=== PATIENT | female | born 1945 | race Caucasian/White ===

== ENCOUNTER 2018-10-07 15:14 | Emergency (ER) | payer OTHER | END 2018-10-07 22:16 | disposition home or self-care (01) | LOC: JER 15:14 ==

== ENCOUNTER 2019-03-13 13:03 | Inpatient (IN) | payer OTHER ==
[2019-03-13 15:34] LABS: BASO % 0.9 % (0-2.0); EOS % 1.2 % (0-4.5); HEMATOCRIT 33.4 % (32.4-45.2); HEMOGLOBIN 11.2 GM/dL (10.7-15.3); LYMPH % 30.1 % (8-40); MCH 32.1 pg (25.7-33.7); MCHC 33.6 g/dl (32.0-36.0); MEAN CELL VOLUME 95.3 fl (80-96); MEAN PLT VOLUME 8.9 fl (7.5-11.1); MONO % 3.2 % (3.8-10.2); NEUT % 64.6 % (42.8-82.8); PLATELET COUNT 345 K/MM3 (134-434); RDW 14.3 % (11.6-15.6); WHITE BLOOD COUNT 4.6 K/mm3 (4.0-10.0)
--- NOTE | 2019-03-13 15:58 | PDOC ---
History of Present Illness - General Chief Complaint: Seizure Stated Complaint: POSSIBLE STROKE Time Seen by Provider: 03/13/19 14:27 History Source: Patient Exam Limitations: No Limitations - History of Present Illness Initial Comments: 03/13/19 18:47 73 yo F with a hx of seizure (1x episode 7 years ago; no hx of epilepsy; no AEDs ), Parkinson's, and dementia presents to the emergency department s/p syncopal event that occurred at 12 pm. Per the daughter at bedside, the patient was at rest when her eyes rolled back and had "stiffness" in her extremities for 1-5 minutes. Denies head trauma. She was lying in her bed at the time of the episode. Afterwards, the patient's family states she is back to baseline which is alert and oriented x2 to person and place. The patient denies the following: pain, fever, chills, SOB, chest pain, nausea, vomiting, dysuria, hematuria, diarrhea, hematochezia, and leg pain/swelling. Allergies: NKDA Past History - Past Medical History Allergies/Adverse Reactions: Allergies Allergy/AdvReac Type Severity Reaction Status Date / Time No Known Allergies Allergy Verified 03/13/19 13:21 Home Medications: Ambulatory Orders NK [No Known Home Medication] 10/07/18 CVA: Yes (cva aphasia/generalized weakness 2014) COPD: No CHF: No HTN: Yes Seizures: Yes - Surgical History Abdominal Surgery: Yes () Appendectomy: No Cholecystectomy: No GI Surgery: No - Immunization History Immunization Up to Date: Yes - Psycho Social/Smoking Cessation Hx Smoking History: Never smoked Have you smoked in the past 12 months: No Information on smoking cessation initiated: No Hx Alcohol Use: No Drug/Substance Use Hx: No Review of Systems - Review of Systems Able to Perform ROS?: Yes Is the patient limited German proficient: No Constitutional: Yes: Weakness. No: Chills, Diaphoresis, Fever HEENTM: No: Eye Pain, Ear Pain, Nose Pain, Throat Pain, Mouth Pain Respiratory: No: Cough, Shortness of Breath, Hemoptysis Cardiac (ROS): Yes: Syncope. No: Chest Pain, Lightheadedness, Palpitations, Chest Tightness ABD/GI: No: Constipated, Diarrhea, Nausea, Vomiting : No: Burning, Dysuria, Incontinence Musculoskeletal: No: Back Pain, Joint Pain, Joint Stiffness Integumentary: No: Bruising, Erythema, Rash Neurological: No: Headache, Numbness Psychiatric: No: Change in Appetite Endocrine: No: Unexplained Weight Loss *Physical Exam - Vital Signs Last Vital Signs Temp Pulse Resp BP Pulse Ox 96.9 F L 74 16 136/63 100 03/13/19 13:06 03/13/19 13:06 03/13/19 13:06 03/13/19 13:06 03/13/19 13:06 - Physical Exam General Appearance: Yes: Appropriately Dressed, Cachetic. No: Apparent Distress , Intoxicated HEENT: positive: EOMI, GRAYSON, Normal Voice, Symmetrical, Pharynx Normal, Hearing Grossly Normal. negative: Pale Conjunctivae, Scleral Icterus (R), Scleral Icterus (L), Muffled/Hoarse voice, Pharyngeal Erythema, Tonsillar Exudate, Tonsillar Erythema, Nasal Congestion, Rhinorrhea, Sinus Tenderness, Excessive drooling Neck: positive: Trachea midline, Supple. negative: Tender, Lymphadenopathy (R) , Lymphadenopathy (L), Tender lateral, Tender midline Respiratory/Chest: positive: Lungs Clear, Normal Breath Sounds. negative: Chest Tender, Respiratory Distress, Accessory Muscle Use, Crackles, Rales, Rhonchi, Stridor Cardiovascular: positive: Regular Rhythm, Regular Rate, S1, S2. negative: Systolic Murmur Gastrointestinal/Abdominal: positive: Normal Bowel Sounds, Flat, Soft. negative : Tender, Distended, Guarding, Rebound Lymphatic: negative: Adenopathy Musculoskeletal: positive: Normal Inspection. negative: CVA Tenderness, Vertebral Tenderness Extremity: positive: Normal Capillary Refill, Normal Inspection, Normal Range of Motion. negative: Tender, Swelling, Calf Tenderness, Erythema Integumentary: positive: Normal Color, Dry, Warm Neurologic: positive: Alert, Normal Mood/Affect, Normal Response. negative: Fully Oriented (oriented to self and place), Motor Strength 5/5 (3/5 strength in hip flexion bilaterally. 4/5 strength in knees and ankles bilaterally. 4/5 fruit or nut grower strength bilaterally. 4/5 biceps, triceps bilaterally. ), EOM Palsy ED Treatment Course - LABORATORY CBC & Chemistry Diagram: 03/13/19 15:00 03/13/19 15:00 - ADDITIONAL ORDERS Additional order review: Laboratory Results 03/13/19 13:13 POC Glucometer 145 03/13/19 13:13 POC Glucometer 145 - RADIOLOGY Radiology Studies Ordered: Category Date Time Status HEAD CT WITHOUT CONTRAST [CT] Stat CT Scan 03/13/19 14:55 Ordered CHEST X-RAY PORTABLE* [RAD] Stat Radiology 03/13/19 14:55 Ordered Medical Decision Making - Medical Decision Making 03/13/19 18:54 73 yo F with a hx of seizure (1x episode 7 years ago; no hx of epilepsy; no AEDs ), Parkinson's, and dementia presents to the emergency department s/p syncopal event that occurred at 12 pm. Initial vitals: Initial Vital Signs Temp Pulse Resp BP Pulse Ox 96.9 F L 74 16 136/63 100 03/13/19 13:06 03/13/19 13:06 03/13/19 13:06 03/13/19 13:06 03/13/19 13:06 Work up: ddx: Laboratory Tests 03/13/19 03/13/19 03/13/19 13:13 15:00 15:00 WBC 4.6 RBC 3.50 L Hgb 11.2 Hct 33.4 MCV 95.3 MCH 32.1 MCHC 33.6 RDW 14.3 Plt Count 345 MPV 8.9 Absolute Neuts (auto) 3.0 Neutrophils % 64.6 Lymphocytes % 30.1 D Monocytes % 3.2 L Eosinophils % 1.2 Basophils % 0.9 Nucleated RBC % 0 Sodium 142 Potassium 3.6 Chloride 109 H Carbon Dioxide 25 Anion Gap 8 BUN 15.2 Creatinine 0.7 Est GFR (CKD-EPI)AfAm 99.62 Est GFR (CKD-EPI)NonAf 85.95 POC Glucometer 145 Random Glucose 133 H Calcium 8.9 Magnesium 2.4 Total Bilirubin 0.5 AST 13 L ALT 12 L Alkaline Phosphatase 62 Total Protein 5.8 L Albumin 3.3 L TSH 9.33 H Free T4 0.87 Urine Color Urine Appearance Urine pH Ur Specific [place] Urine Protein Urine Glucose (UA) Urine Ketones Urine Blood Urine Nitrite Urine Bilirubin Urine Urobilinogen Ur Leukocyte Esterase 03/13/19 17:00 WBC RBC Hgb Hct MCV MCH MCHC RDW Plt Count MPV Absolute Neuts (auto) Neutrophils % Lymphocytes % Monocytes % Eosinophils % Basophils % Nucleated RBC % Sodium Potassium Chloride Carbon Dioxide Anion Gap BUN Creatinine Est GFR (CKD-EPI)AfAm Est GFR (CKD-EPI)NonAf POC Glucometer Random Glucose Calcium Magnesium Total Bilirubin AST ALT Alkaline Phosphatase Total Protein Albumin TSH Free T4 Urine Color Yellow Urine Appearance Clear Urine pH 6.5 Ur Specific [place] 1.020 Urine Protein Negative Urine Glucose (UA) Negative Urine Ketones Negative Urine Blood Negative Urine Nitrite Negative Urine Bilirubin Negative Urine Urobilinogen 1.0 Ur Leukocyte Esterase Negative head CT by my read is negative for acute gross infarcts. EKG shows NSR with atrial complexes without ST elevation or depresison. QTc is [address] Lundberg, who is her neurologist, who states she needs 750 mg keppra BID and MRI brain with and without. Will admit. Discharge - Discharge Information Problems reviewed: Yes Clinical Impression/Diagnosis: Seizure - Follow up/Referral Referrals: Mark Anthony Lugo MD [Primary Care Provider] - - Patient Discharge Instructions - Post Discharge Activity
[2019-03-13 16:38] LABS: ALBUMIN 3.3 g/dl (3.4-5.0); BILIRUBIN,TOTAL 0.5 mg/dL (0.2-1); BLOOD UREA NITROGEN 15.2 mg/dL (7-18); CALCIUM 8.9 mg/dL (8.5-10.1); CREATININE 0.7 mg/dL (0.55-1.3); MAGNESIUM 2.4 mg/dL (1.8-2.4); POTASSIUM 3.6 mmol/L (3.5-5.1); TOT PROT 5.8 g/dl (6.4-8.2)
[2019-03-13 17:19] LABS: PH,URINE 6.5 (5.0-8.0); URINE APPEARANCE CLEAR; URINE BILIRUBIN NEGATIVE (NEGATIVE); URINE COLOR YELLOW; URINE GLUCOSE (UA) NEGATIVE (NEGATIVE); URINE KETONE NEGATIVE (NEGATIVE); URINE LEUK ESTERASE NEGATIVE (NEGATIVE); URINE NITRITE NEGATIVE (NEGATIVE); URINE PROTEIN NEGATIVE (NEGATIVE)
--- NOTE | 2019-03-13 18:56 | PDOC ---
Documentation entered by Bert Law SCRIBE, acting as scribe for Jeni Ellington MD. Jeni Ellington MD: This documentation has been prepared by the Thanh johnson Daniel, SCRIBE, under my direction and personally reviewed by me in its entirety. I confirm that the documentation accurately reflects all work, treatment, procedures, and medical decision making performed by me. Attending Attestation - Resident Resident Name: Stevie Caldwell - ED Attending Attestation I have performed the following: I have examined & evaluated the patient, The case was reviewed & discussed with the resident, I agree w/resident's findings & plan, Exceptions are as noted - HPI HPI: 03/13/19 14:43 The patient is a 73 year old female with a past medical history of Parkinsons disease and dementia here today for evaluation of seizure activity. The patient s family reports that at 12 today the patients eyes rolled back and she became stiff on her bed for 1-5 minutes. They state that the patients last seizure was 6-7 years ago. She did not have seizures prior to that and is not on any AEDs. They deny any head strike and state the patient is back to her baseline. Patient has no complaints at this time. Patient denies headache, lightheadedness, focal weakness/numbness. Denies fever , chills. Denies chest pain, shortness of breath. Denies nausea, vomiting, diarrhea, abdominal pain. Allergies: NKA PCP: Mark Anthony Lugo - Physicial Exam PE: 03/13/19 14:43 Agree with resident exam - Medical Decision Making 03/13/19 18:50 73yo F with MMP including parkinsons disease, previous seizure 7yrs ago presents to the ED after seizure activity. No new neuro deficits TSH elevated, free T4 pending Labs otherwise wnl UA negative, CXR clear CTH pending Case discussed with pt's neurologist Dr. Bianchi who recommends MRI and admission for evaluation of seizure Once CTH read, will admit for further w/u Heart Score/ECG Review #1 03/13/19 18:55 EKG read and int by me: Sinus rhythm, rate 66, normal axis. No JAIME
--- NOTE | 2019-03-13 19:44 | PN ---
Teaching Attending Note Name of Resident: Marcial Aly ATTENDING PHYSICIAN STATEMENT I saw and evaluated the patient. I reviewed the resident's note and discussed the case with the resident. I agree with the resident's findings and plan as documented. SUBJECTIVE: Patient is a 73 year old woman with a PMH of Seizure (1 episode 7 years ago), Parkinson's, and Dementia who presents to the ER after a syncopal event that occurred at 12 pm. Per the daughter at bedside, the patient was at rest when her eyes rolled back and had "stiffness" in her extremities for 1-5 minutes. Denies head trauma. She was lying in her bed at the time of the episode. Afterwards, the patient's family states she is back to baseline which is alert and oriented to person and place. The patient denies abdominal pain, limb pain, fever, chills, SOB, chest pain, nausea, vomiting, dysuria, hematuria, diarrhea, hematochezia or dizziness. Denies alcohol, tobacco or illicit drug use. No sick contacts or recent travels. OBJECTIVE: Alert Vital Signs Period Temp Pulse Resp BP Sys/Lyons Pulse Ox Last 24 Hr 96.9 F 74 16 136/63 100 HEENT: No Jaundice, eye redness or discharge, PERRLA, EOMI. Normocephalic, atraumatic. External ears are normal and hearing is grossly intact. No nasal discharge. Neck: Supple, nontender. No palpable adenopathy or thyromegaly. No JVD Chest: Good effort. Clear to auscultation and percussion. Heart: Regular. No S3, rub or murmur Abdomen: Not distended, soft, nontender and no HSM. No rebound or guarding. Normal bowel sounds. Ext: Peripheral pulses intact. No leg edema. Skin: Warm and dry. No petechiae, rash or ecchymosis. Neuro: Alert. Oriented x3. CN 2-12 grossly intact. Sensation grossly intact in all four extremities and DTR are symmetric. Psych: Appropriate mood and affect. Good insight. Current Medications Generic Name Dose Route Start Last Admin Trade Name Freq PRN Reason Stop Dose Admin Levetiracetam 750 mg 03/13/19 22:00 Keppra Injection - IVPB BID RICHIE Home Medications Medication Instructions Recorded NK [No Known Home Medication] 10/07/18 Abnormal Lab Results 03/13/19 03/13/19 15:00 15:00 RBC 3.50 L Monocytes % 3.2 L Chloride 109 H Random Glucose 133 H AST 13 L ALT 12 L Total Protein 5.8 L Albumin 3.3 L TSH 9.33 H ASSESSMENT AND PLAN: 1. Seizure - No obvious precipitating factor. No acute abnormality on head CT or CXR. Started on IV Keppra in the ER and will continue same. EKG pending. Neurology consulted. Will do neurochecks, implement seizure/aspiration precautions, get EEG, brain MRI, carotid doppler, ECHO and monitor on telemetry. Elevated TSH - free T4 and T3 pending. Will continue comprehensive care for all of patients comorbid conditions. 2. Hypoalbuminemia - Possibly due to combined effects of malnutrition and inflammation associated with comorbid chronic conditions. Will ensure adequate dietary protein intake and also consult tool operator. Urinalysis pending. 3. DVT prophylaxis - Lovenox 40 mg SQ q 24 hours. 4. Advance directives - Full code
[2019-03-13] MEDS ORDERED: levETIRAcetam 500 MG/5 ML INJECTION VIAL IVPB ONE (22:05)
[2019-03-13] MEDS: levETIRAcetam 500 MG/5 ML INJECTION VIAL IVPB SCH (22:13)
[2019-03-14] MEDS ORDERED: MELATONIN 1 MG TABLET PO ONE (01:50)
--- NOTE | 2019-03-14 04:57 | HP ---
CHIEF COMPLAINT: Seizure like event lasting <5 minutes PCP: Dr. Mark Anthony Lugo HISTORY OF PRESENT ILLNESS: This is a 73 year old female with PMH of Parkinson's and dementia. She was brought to the ER by her family after a she suffered a seizure 30 minutes prior to presentation. The patient is AOx1-2 at baseline, and ambulates with assistance. She lives with her daughter. As per grand daughter at bedside, she is able to follow basic commands, responds with a "yes" or "no" to most questions, and is able to communicate when she needs to go to the bathroom, when she is hungry, and when she would like to change the television channel. She usually wakes up at 8AM, but today she woke up late at around 11AM. Her daughter was about to help her out of bed, when suddenly she became rigid and extended her limbs. Her eyes rolled back, and she was foaming at the mouth. This lasted 1-5 minutes, after which she relaxed but was still unresponsive and kept staring into space, for about 20 minutes, after which she returned to baseline. The family immediately brought her to the ER. She did not complain of any nausea, AMS, vomiting, chest/abdominal pain, headaches, has had no recent illnesses and no recent change in medication. She had a similar episode 7 years ago in [place]. ER course was notable for: (1) CT normal (2) Dr. Lundberg consulted (3) Keppra given 750mg Recent Travel: None PAST MEDICAL HISTORY: As listed in HPI PAST SURGICAL HISTORY: Breast CA, lumpectomy over 10 years ago Social History: Smoking: none Alcohol: none Drugs: none Allergies No Known Allergies Allergy (Verified 03/13/19 13:21) HOME MEDICATIONS: Home Medications Medication Instructions Recorded NK [No Known Home Medication] 10/07/18 REVIEW OF SYSTEMS CONSTITUTIONAL: Absent: fever, chills, diaphoresis, generalized weakness, malaise, loss of appetite, weight change HEENT: Absent: rhinorrhea, nasal congestion, throat pain, throat swelling, difficulty swallowing, mouth swelling, ear pain, eye pain, visual changes CARDIOVASCULAR: Absent: chest pain, syncope, palpitations, irregular heart rate, lightheadedness , peripheral edema RESPIRATORY: Absent: cough, shortness of breath, dyspnea with exertion, orthopnea, wheezing, stridor, hemoptysis GASTROINTESTINAL: Absent: abdominal pain, abdominal distension, nausea, vomiting, diarrhea, constipation, melena, hematochezia GENITOURINARY: Absent: dysuria, frequency, urgency, hesitancy, hematuria, flank pain, genital pain MUSCULOSKELETAL: Absent: myalgia, arthralgia, joint swelling, back pain, neck pain SKIN: Absent: rash, itching, pallor HEMATOLOGIC/IMMUNOLOGIC: Absent: easy bleeding, easy bruising, lymphadenopathy, frequent infections ENDOCRINE: Absent: unexplained weight gain, unexplained weight loss, heat intolerance, cold intolerance NEUROLOGIC: Absent: headache, focal weakness or paresthesias, dizziness, unsteady gait, seizure, mental status changes, bladder or bowel incontinence PSYCHIATRIC: Absent: anxiety, depression, suicidal or homicidal ideation, hallucinations. PHYSICAL EXAMINATION Vital Signs - 24 hr 03/13/19 03/13/19 13:06 23:57 Temperature 96.9 F L Pulse Rate 74 Pulse Rate [ 62 Right Radial] Respiratory 16 Rate Blood Pressure 136/63 Blood Pressure 140/68 [Left Arm] O2 Sat by Pulse 100 98 Oximetry (%) GENERAL: AOx2 HEAD: Normal with no signs of trauma. EYES: Pupils equal, round and reactive to light, extraocular movements intact, sclera anicteric, conjunctiva clear. No lid lag. EARS, NOSE, THROAT: Ears normal, nares patent, oropharynx clear without exudates. Dry mucous membranes. LUNGS: Breath sounds equal, clear to auscultation bilaterally. No wheezes, and no crackles. No accessory muscle use. HEART: Regular rate and rhythm, normal S1 and S2 without murmur, rub or gallop. ABDOMEN: Soft, mild suprapubic tenderness MUSCULOSKELETAL: Normal range of motion at all joints. No bony deformities or tenderness. No CVA tenderness. UPPER EXTREMITIES: 2+ pulses, warm, well-perfused. No cyanosis. No clubbing. No peripheral edema. LOWER EXTREMITIES: 2+ pulses, warm, well-perfused. No calf tenderness. No peripheral edema. NEUROLOGICAL: Motor 4/5, sensations intact PSYCHIATRIC: Cooperative. Good eye contact. Appropriate mood and affect. SKIN: Warm, dry, normal turgor, no rashes or lesions noted, normal capillary refill. Laboratory Results - last 24 hr 03/13/19 03/13/19 03/13/19 13:13 15:00 15:00 WBC 4.6 RBC 3.50 L Hgb 11.2 Hct 33.4 MCV 95.3 MCH 32.1 MCHC 33.6 RDW 14.3 Plt Count 345 MPV 8.9 Absolute Neuts (auto) 3.0 Neutrophils % 64.6 Lymphocytes % 30.1 D Monocytes % 3.2 L Eosinophils % 1.2 Basophils % 0.9 Nucleated RBC % 0 Sodium 142 Potassium 3.6 Chloride 109 H Carbon Dioxide 25 Anion Gap 8 BUN 15.2 Creatinine 0.7 Est GFR (CKD-EPI)AfAm 99.62 Est GFR (CKD-EPI)NonAf 85.95 POC Glucometer 145 Random Glucose 133 H Calcium 8.9 Magnesium 2.4 Total Bilirubin 0.5 AST 13 L ALT 12 L Alkaline Phosphatase 62 Total Protein 5.8 L Albumin 3.3 L TSH 9.33 H Free T4 0.87 Urine Color Urine Appearance Urine pH Ur Specific [place] Urine Protein Urine Glucose (UA) Urine Ketones Urine Blood Urine Nitrite Urine Bilirubin Urine Urobilinogen Ur Leukocyte Esterase 03/13/19 17:00 WBC RBC Hgb Hct MCV MCH MCHC RDW Plt Count MPV Absolute Neuts (auto) Neutrophils % Lymphocytes % Monocytes % Eosinophils % Basophils % Nucleated RBC % Sodium Potassium Chloride Carbon Dioxide Anion Gap BUN Creatinine Est GFR (CKD-EPI)AfAm Est GFR (CKD-EPI)NonAf POC Glucometer Random Glucose Calcium Magnesium Total Bilirubin AST ALT Alkaline Phosphatase Total Protein Albumin TSH Free T4 Urine Color Yellow Urine Appearance Clear Urine pH 6.5 Ur Specific [place] 1.020 Urine Protein Negative Urine Glucose (UA) Negative Urine Ketones Negative Urine Blood Negative Urine Nitrite Negative Urine Bilirubin Negative Urine Urobilinogen 1.0 Ur Leukocyte Esterase Negative ASSESSMENT/PLAN: 73 year old female with PMH of Parkinson's and dementia. She was brought to the ER by her family after a she suffered a seizure 30 minutes prior to presentation. #Seizure - No signs of stroke, metabolic derangements, trauma, cause uncertain at this time - CT head normal - MRI ordered - Dr. Lundberg consulted - Keppra 750mg administered #Elevated TSH - May be subclinical hypothyroidism - TSH, T4 ordered #Hyperglycemia - May be reactive or undiagnosed DM - HbA1c ordered - BGM GENEVA with Novolog SS started #FEN - Chol/Fat/Na diet #DVT - Lovenox 40mg Visit type - Emergency Visit Emergency Visit: Yes ED Registration Date: 03/13/19 Care time: The patient presented to the Emergency Department on the above date and was hospitalized for further evaluation of their emergent condition. - New Patient This patient is new to me today: Yes Date on this admission: 03/14/19 - Critical Care Critical Care patient: No ATTENDING PHYSICIAN STATEMENT I saw and evaluated the patient. I reviewed the resident's note and discussed the case with the resident. I agree with the resident's findings and plan as documented. SUBJECTIVE: OBJECTIVE: ASSESSMENT AND PLAN:
[2019-03-14 07:07] LABS: BASO % 0.5 % (0-2.0); EOS % 0.6 % (0-4.5); HEMATOCRIT 31.1 % (32.4-45.2); HEMOGLOBIN 10.8 GM/dL (10.7-15.3); LYMPH % 22.1 % (8-40); MCH 32.4 pg (25.7-33.7); MCHC 34.6 g/dl (32.0-36.0); MEAN CELL VOLUME 93.6 fl (80-96); MEAN PLT VOLUME 8.9 fl (7.5-11.1); NEUT % 71.8 % (42.8-82.8); PLATELET COUNT 356 K/MM3 (134-434); RBC 3.33 M/mm3 (3.60-5.2); RDW 14.3 % (11.6-15.6); WHITE BLOOD COUNT 6.7 K/mm3 (4.0-10.0)
[2019-03-14 07:08] LABS: ALK PHOS 65 U/L (45-117); ANION GAP 6 MMOL/L (8-16); BILIRUBIN,TOTAL 0.6 mg/dL (0.2-1); BLOOD UREA NITROGEN 14.9 mg/dL (7-18); CALCIUM 8.7 mg/dL (8.5-10.1); CHLORIDE 109 mmol/L (98-107); CHOLESTEROL 178 mg/dL (50-200); CO2 27 mmol/L (21-32); CREATININE 0.8 mg/dL (0.55-1.3); GLUCOSE,RANDOM 89 mg/dL (74-106); HDL CHOLESTEROL 62 mg/dL (40-60); LDL CHOLESTEROL (ONLY SJRH) 100 mg/dL (5-100); POTASSIUM 3.8 mmol/L (3.5-5.1); SGOT/AST 12 U/L (15-37); SGPT/ALT 9 U/L (13-61); SODIUM 142 mmol/L (136-145); TOT PROT 5.8 g/dl (6.4-8.2); TRIGLYCERIDES 93 mg/dL (0-150)
[2019-03-14] MEDS ORDERED: levETIRAcetam 500 MG/5 ML INJECTION VIAL IVPB ONE ×2 (09:37→09:38)
[2019-03-14 09:45] LABS: IRON SERUM 37 ug/dL (50-175); TOTAL IRON BINDING CAPACITY 213 ug/dL (250-450)
[2019-03-14] MEDS ORDERED: ENOXAPARIN NA (PORCINE) 30 MG/0.3 ML DISP.SYRIN SQ SCH (10:00)
--- NOTE | 2019-03-14 10:02 | EKG ---
Test Reason : Blood Pressure : / mmHG Vent. Rate : 066 BPM Atrial Rate : 066 BPM P-R Int : 134 ms QRS Dur : 080 ms QT Int : 454 ms P-R-T Axes : 078 034 048 degrees QTc Int : 475 ms SINUS RHYTHM WITH PREMATURE ATRIAL COMPLEXES NONSPECIFIC T WAVE ABNORMALITY PROLONGED QT ABNORMAL ECG WHEN COMPARED WITH ECG OF 07-OCT-2018 17:19, PREMATURE ATRIAL COMPLEXES ARE NOW PRESENT T WAVE VARIATION Confirmed by JOVANNY TALAVERA, BRITTANY ([id number]) on 03/14/2019 10:02:13 AM Referred By: Confirmed By:BRITTANY PETTY MD
[2019-03-14] MEDS ORDERED: AMIODARONE HCL 200 MG TABLET ONE (10:08)
[2019-03-14] MEDS: INSULIN SLIDING SCALE (NOVOLOG) 1 VIAL SQ SCH ×4 (10:32→21:58)
[2019-03-14] MEDS: ENOXAPARIN NA (PORCINE) 40 MG/0.4 ML DISP.SYRIN SQ SCH (11:02)
[2019-03-14] MEDS: levETIRAcetam 500 MG/5 ML INJECTION VIAL IVPB SCH ×2 (11:02→21:57)
[2019-03-14] MEDS ORDERED: FERROUS SO4 325 MG TABLET (FP) ONE (13:33)
[2019-03-14] MEDS: ASCORBIC ACID 500 MG TABLET (FP) PO SCH (15:46)
[2019-03-14] MEDS: FERROUS SO4 325 MG TABLET (FP) PO SCH (15:46)
--- NOTE | 2019-03-14 16:12 | CON.NEURO ---
Consult - Alcohol/Substance Use Hx Alcohol Use: No - Smoking History Smoking history: Never smoked Have you smoked in the past 12 months: No Home Medications - Allergies Allergies/Adverse Reactions: Allergies Allergy/AdvReac Type Severity Reaction Status Date / Time No Known Allergies Allergy Verified 03/13/19 13:21 - Home Medications Home Medications: Ambulatory Orders NK [No Known Home Medication] 10/07/18 Physical Exam-Neuro Vital Signs: Vital Signs Temperature 96.9 F L 03/13/19 13:06 Pulse Rate 56 L 03/14/19 07:45 Respiratory Rate 16 03/14/19 07:45 Blood Pressure 125/65 03/14/19 07:45 O2 Sat by Pulse Oximetry (%) 98 03/14/19 07:45 Labs: CBC, BMP 03/14/19 06:00 03/14/19 06:00 Assessment/Plan cc New onset seizure HPI 73 year old female lives with her daughter , she has history of dementia and PD.She came to hospital for new onset seizure . Patient was loaded with keppra and ct head wa snoraml. She has baseline dementia and she can go around with help. Patiet has no fever or taruma. Patient never been on seizure medication PAST MEDICAL HISTORY: As listed in HPI PAST SURGICAL HISTORY: Breast CA, lumpectomy over 10 years ago Social History: Smoking: none Alcohol: none Drugs: none Allergies No Known Allergies Allergy (Verified 03/13/19 13:21) HOME MEDICATIONS: Home Medications Medication Instructions Recorded NK [No Known Home Medication] 10/07/18 ROS,FH,SH reviewed in chart NEUROLOGICAL EXAMINATION Alert oriented x 1, speech is soft, neck is supple vss eomi, pupils reactive no face asymmetry moving all ext ct head is unremarkable Assessment/Plan New onset seizure, history of PD AND Dementia Plan continue keppra 750 mg po bid seizure precautions mri of brain and eeg will continue to follow Thanking you so much Armen Lundberg MD
[2019-03-14] MEDS ORDERED: LORazepam 2 MG/ML SDV VIAL IVPUSH ONE ×2 (17:29→18:19)
[2019-03-14] MEDS ORDERED: LORazepam 2 MG/ML SDV VIAL ONE (18:01)
--- NOTE | 2019-03-14 22:22 | CONSULT ---
Consult Consult Specialty:: Endocrine Referred by:: Raul Foster Reason for Consultation:: abnormal tfts - History of Present Illness Chief Complaint: seizures History of Present Illness: 73 year old female with PMH of Parkinson's and dementia.Admitted after a she suffered a seizure at home,witnessed by family. The patient is AOx1-2 at baseline, and ambulates with assistance. She lives with her daughter. As per grand daughter at bedside, she is able to follow basic commands, ros mostly from [facility].stated no history of thyroid disease,denies weight gain,neck pain or hair or skin changes.found to have abnormal thyroid function testing since admission.. 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 Loss, Weakness Eyes: reports: No Symptoms Physical Exam Vital Signs: Vital Signs Temperature 96.9 F L 03/13/19 13:06 Pulse Rate 85 03/14/19 17:50 Respiratory Rate 16 03/14/19 07:45 Blood Pressure 147/70 03/14/19 17:50 O2 Sat by Pulse Oximetry (%) 99 03/14/19 17:50 Constitutional: Yes: Calm, Cachectic Eyes: Yes: EOM Intact HENT: Yes: Normocephalic Neck: Yes: Trachea Midline Cardiovascular: Yes: Bradycardia Respiratory: Yes: CTA Bilaterally Gastrointestinal: Yes: Normal Bowel Sounds ...Rectal Exam: Yes: Deferred Renal/: Yes: WNL Musculoskeletal: Yes: Muscle Weakness Extremities: Yes: WNL Edema: No Integumentary: Yes: WNL Labs: CBC, BMP 03/14/19 06:00 03/14/19 06:00 Problem List - Problems (1) Seizure Code(s): R56.9 - UNSPECIFIED CONVULSIONS (2) Abdominal pain Code(s): R10.9 - UNSPECIFIED ABDOMINAL PAIN (3) Nausea vomiting and diarrhea Code(s): R11.2 - NAUSEA WITH VOMITING, UNSPECIFIED; R19.7 - DIARRHEA, UNSPECIFIED (4) Ovarian mass, left Code(s): N83.8 - OTH NONINFLAMMATORY DISORD OF OVARY, FALLOP AND BROAD LIGMT Assessment/Plan Current Active Problems Seizure (Acute) dementia parkinsons disease seizure related elevated tsh euthyroid in recovery phase Laboratory Tests 12/16/18 03/13/19 14:36 15:00 TSH 2.19 9.33 H Free T4 0.87 plan; given oct tsh normal nl free t4 repeat tsh and [id number] free t4 will likely normalize in recovery phase
--- NOTE | 2019-03-14 23:41 | PN ---
Physical Exam: 73 F h/o Parkinsons disease with dementia, presents s/p seizure-like episode and period of unresponsiveness witnessed by daughter. Patient admitted for seizure episode, since admission no seizure-like activity seen, pt. appears to be at her baseline which is AAox1-2. Family at bedside who are also feeding her soft diet. Vital Signs - 24 hr 03/13/19 03/14/19 03/14/19 23:57 07:45 17:50 Temperature Pulse Rate Pulse Rate [ 56 L 85 Left Radial] Pulse Rate [ 62 Right Radial] Respiratory 16 Rate Blood Pressure Blood Pressure 140/68 125/65 147/70 [Left Arm] O2 Sat by Pulse 98 98 99 Oximetry (%) 03/14/19 21:00 Temperature 97.8 F Pulse Rate 64 Pulse Rate [ Left Radial] Pulse Rate [ Right Radial] Respiratory 19 Rate Blood Pressure 138/70 Blood Pressure [Left Arm] O2 Sat by Pulse Oximetry (%) PE VSS GA AAOx1 (self), comfortable, eating w/ family assistance, cachectic, R eye lid droop (chronic as per family) HEENT NC/AT, EOMI, neck supple, masked faced Chest CTAB anteriorally CVS s1, S2+, RRR Abd thin body habitus, soft, NT, ND Ext No LE edema Laboratory Results - last 24 hr 03/14/19 03/14/19 03/14/19 06:00 06:00 06:00 WBC 6.7 RBC 3.33 L Hgb 10.8 Hct 31.1 L MCV 93.6 MCH 32.4 MCHC 34.6 RDW 14.3 Plt Count 356 MPV 8.9 Absolute Neuts (auto) 4.8 Neutrophils % 71.8 Lymphocytes % 22.1 D Monocytes % 5.0 Eosinophils % 0.6 Basophils % 0.5 Nucleated RBC % 0 Sodium 142 Potassium 3.8 Chloride 109 H Carbon Dioxide 27 Anion Gap 6 L BUN 14.9 Creatinine 0.8 Est GFR (CKD-EPI)AfAm 84.77 Est GFR (CKD-EPI)NonAf 73.14 POC Glucometer Random Glucose 89 Hemoglobin A1c % 4.7 Calcium 8.7 Iron 37 L TIBC 213 L Iron Saturation 17 L Unsaturated IBC 176 L Total Bilirubin 0.6 AST 12 L ALT 9 L Alkaline Phosphatase 65 Troponin I < 0.02 Total Protein 5.8 L Albumin 3.0 L Triglycerides 93 Cholesterol 178 Total LDL Cholesterol 100 HDL Cholesterol 62 H 03/14/19 03/14/19 03/14/19 09:36 11:29 16:41 WBC RBC Hgb Hct MCV MCH MCHC RDW Plt Count MPV Absolute Neuts (auto) Neutrophils % Lymphocytes % Monocytes % Eosinophils % Basophils % Nucleated RBC % Sodium Potassium Chloride Carbon Dioxide Anion Gap BUN Creatinine Est GFR (CKD-EPI)AfAm Est GFR (CKD-EPI)NonAf POC Glucometer 87 117 108 Random Glucose Hemoglobin A1c % Calcium Iron TIBC Iron Saturation Unsaturated IBC Total Bilirubin AST ALT Alkaline Phosphatase Troponin I Total Protein Albumin Triglycerides Cholesterol Total LDL Cholesterol HDL Cholesterol 03/14/19 03/14/19 20:48 21:22 WBC RBC Hgb Hct MCV MCH MCHC RDW Plt Count MPV Absolute Neuts (auto) Neutrophils % Lymphocytes % Monocytes % Eosinophils % Basophils % Nucleated RBC % Sodium Potassium Chloride Carbon Dioxide Anion Gap BUN Creatinine Est GFR (CKD-EPI)AfAm Est GFR (CKD-EPI)NonAf POC Glucometer 86 Random Glucose Hemoglobin A1c % Calcium Iron TIBC Iron Saturation Unsaturated IBC Total Bilirubin AST ALT Alkaline Phosphatase Troponin I < 0.02 Total Protein Albumin Triglycerides Cholesterol Total LDL Cholesterol HDL Cholesterol Home Medications Medication Instructions Recorded NK [No Known Home Medication] 10/07/18 Current Medications Generic Name Dose Route Start Last Admin Trade Name Freq PRN Reason Stop Dose Admin Ascorbic Acid 500 mg 03/14/19 10:45 03/14/19 15:46 Vitamin C - PO 500 mg DAILY RICHIE Administration Enoxaparin Sodium 40 mg 03/14/19 10:00 03/14/19 11:02 Lovenox - SQ 40 mg DAILY RICHIE Administration Ferrous Sulfate 325 mg 03/14/19 10:45 03/14/19 15:46 Feosol - PO 325 mg DAILY RICHIE Administration Levetiracetam 750 mg 03/13/19 22:00 03/14/19 21:57 Keppra Injection - IVPB 750 mg BID RICHIE Administration 73 F h/o Parkinson's and dementia admitted for seizure like episode witnessed by family lasting about 1 minute. Seizure-like episode likely 2/2 extensive encephalomalacia/chronic microvascular changes on MRI brain , no signs of mesial temporal sclerosis (usually indicative of chronic seizure disorder). Seizure precautions, aspiration precautions, loaded w/ 1g Keppra, Neuro consult. Elevated TSH no distinct symptoms euthyroid in recovery phase (d/t poor conversion of T4 to T3) obtain FT3, repeat TSH, otherwise no indication for treatment Endocrine consult appreciated: Dr. Dutta DVT ppx: Lovenox SQ Seizure precautions Visit type - Emergency Visit Emergency Visit: Yes ED Registration Date: 03/13/19 Care time: The patient presented to the Emergency Department on the above date and was hospitalized for further evaluation of their emergent condition. - New Patient This patient is new to me today: Yes Date on this admission: 03/14/19 - Critical Care Critical Care patient: No - Discharge Referral Referred to [facility] No
[2019-03-15] MEDS: levETIRAcetam 500 MG/5 ML INJECTION VIAL IVPB SCH ×2 (10:38→21:10)
[2019-03-15] MEDS: ENOXAPARIN NA (PORCINE) 40 MG/0.4 ML DISP.SYRIN SQ SCH (11:12)
[2019-03-15] MEDS: FERROUS SO4 325 MG TABLET (FP) PO SCH (11:12)
[2019-03-15] MEDS: ASCORBIC ACID 500 MG TABLET (FP) PO SCH (11:13)
--- NOTE | 2019-03-15 11:51 | ECHO ---
Version: 1 Name: JAIR CASEY Exam: Adult Echocardiogram Study Date: 03/15/2019, 9:09 AM Age: 73 Years MMode/2D Measurements & Calculations IVSd: 0.84 cm LVIDs: 2.24 cm LVIDd: 3.1 cm LVPWd: 0.96 cm LAV (MOD-bp): 33.1 ml LVOT diam: 1.97 cm Ao root diam: 2.5 cm LA dimension: 2.36 cm Doppler Measurements & Calculations MV E max milton: 64.5 cm/sec Med E/e': 16.9 MV A max milton: 91.7 cm/sec Med Peak E' Milton: 3.8 cm/sec MV E/A: 0.70 Lat E/e': 8.2 Lat Peak E' [place]: 7.8 cm/sec MR max P.0 mmHg Ao max P.1 mmHg Ao V2 max: 123.5 cm/sec TR max milton: 257.9 cm/sec TR max P.6 mmHg Procedure A two-dimensional transthoracic echocardiogram with color flow and Doppler was performed. The patien t was in a tachycardic rhythm during the exam. Left Ventricle The left ventricular size, thickness and function are normal. Ejection Fraction = 55%. Fused E/A wav e precludes diastolic assessment. Right Ventricle The right ventricle is normal in size and function. Atria Normal left and right atrial size and function. Mitral Valve There is mild mitral annular calcification. There is mild mitral regurgitation. Tricuspid Valve The tricuspid valve is normal in structure and function. There is mild tricuspid regurgitation. Aortic Valve The aortic valve is normal in structure and function. No hemodynamically significant valvular aortic stenosis. No aortic regurgitation is present. Pulmonic Valve The pulmonic valve leaflets are thin and pliable; valve motion is normal. Great Vessels The aortic root is normal size. Pericardium/Pleura There is no pericardial effusion. Summary Statements The patient was in a tachycardic rhythm during the exam. The left ventricular size, thickness and function are normal The right ventricle is normal in size and function. The aortic valve is normal in structure and function. George Majano 03/15/2019, 11:50 AM Ordering Physician: Raul Foster Performed By: Dahiana Aguilar
[2019-03-15 13:26] LABS: BASO % 0.4 % (0-2.0); HEMATOCRIT 31.4 % (32.4-45.2); MCH 32.8 pg (25.7-33.7); MEAN CELL VOLUME 93.8 fl (80-96); MEAN PLT VOLUME 8.4 fl (7.5-11.1); MONO % 4.5 % (3.8-10.2); NEUT % 84.1 % (42.8-82.8); PLATELET COUNT 337 K/MM3 (134-434); RBC 3.35 M/mm3 (3.60-5.2); RDW 14.3 % (11.6-15.6); WHITE BLOOD COUNT 10.8 K/mm3 (4.0-10.0)
[2019-03-15 13:58] LABS: BLOOD UREA NITROGEN 14.5 mg/dL (7-18); CALCIUM 8.6 mg/dL (8.5-10.1); CREATININE 0.7 mg/dL (0.55-1.3); MAGNESIUM 2.2 mg/dL (1.8-2.4); PHOSPHOROUS 3.7 mg/dL (2.5-4.9); POTASSIUM 3.4 mmol/L (3.5-5.1); TOT PROT 5.6 g/dl (6.4-8.2)
--- NOTE | 2019-03-15 14:56 | PN ---
Progress Note, Physician Chief Complaint: 24HR events -EEG completed - awaiting final read -MRI done: pt noted to have extensive microvascular changes -Keppra continued for Seizure disorder - Current Medication List Current Medications: Active Medications Ascorbic Acid (Vitamin C -) 500 mg PO DAILY [facility] Last Admin: 03/15/19 11:13 Dose: Not Given Enoxaparin Sodium (Lovenox -) 40 mg SQ DAILY [facility] Last Admin: 03/15/19 11:12 Dose: 40 mg Ferrous Sulfate (Feosol -) 325 mg PO DAILY [facility] Last Admin: 03/15/19 11:12 Dose: Not Given Potassium Chloride (Potassium Chloride 10 Meq Premix Ivpb -) 10 meq in 100 mls @ 100 mls/hr IVPB Q60M [facility] Stop: 03/15/19 17:59 Levetiracetam (Keppra Injection -) 750 mg IVPB BID [facility] Last Admin: 03/15/19 10:38 Dose: 750 mg - Objective Vital Signs: Vital Signs Temperature 97.9 F 03/15/19 11:33 Pulse Rate 64 03/15/19 11:33 Respiratory Rate 18 03/15/19 11:33 Blood Pressure 118/65 03/15/19 11:33 O2 Sat by Pulse Oximetry (%) 99 03/15/19 11:33 Constitutional: Yes: Thin, Other (lethargic) Eyes: Yes: Ptosis (right lid lag and eyelid crusting), Other (sluggish pupils) HENT: Yes: Atraumatic, Normocephalic Neck: Yes: Supple Cardiovascular: Yes: Regular Rate and Rhythm Respiratory: Yes: Regular, Diminished Gastrointestinal: Yes: Soft, Hypoactive Bowel Sounds ...Rectal Exam: Yes: Deferred Musculoskeletal: Yes: Muscle Weakness Edema: No Peripheral Pulses WNL: Yes Peripheral Pulses: Left Radial: 2+, Right Radial: 2+ Neurological: Yes: Weakness Psychiatric: Yes: Other (lethargic, reduced muscle strength) Labs: CBC, BMP 03/15/19 13:10 03/15/19 13:10 Problem List - Problems (1) Anemia Assessment/Plan: continue iron + vitamin c dysphagia diet Problems reviewed: Yes Code(s): D64.9 - ANEMIA, UNSPECIFIED (2) DVT prophylaxis Assessment/Plan: SC lovenox turn and reposition q2hrs Code(s): Z29.9 - ENCOUNTER FOR PROPHYLACTIC MEASURES, UNSPECIFIED (3) Seizure Assessment/Plan: keppra 750mg BID neuro following Ativan PRN acute seizure episode f/u final EEG report blood cultures sent to lab Code(s): R56.9 - UNSPECIFIED CONVULSIONS Impression/Plan Impression/Plan: Code status: Full Diet: mechanical soft, ensure daily SW consult for discharge planning Visit type - Emergency Visit Emergency Visit: Yes ED Registration Date: 03/13/19 Care time: The patient presented to the Emergency Department on the above date and was hospitalized for further evaluation of their emergent condition. - New Patient This patient is new to me today: Yes Date on this admission: 03/15/19 - Critical Care Critical Care patient: No - Discharge Referral Referred to [facility] No
--- NOTE | 2019-03-15 15:31 | PN ---
Progress Note (short form) - Note Progress Note: cc New onset seizure HPI 73 year old female lives with her daughter , she has history of dementia and PD.She came to hospital for new onset seizure . Patient was loaded with keppra and ct head wa snoraml. She has baseline dementia and she can go around with help. Patiet has no fever or taruma. Patient never been on seizure medication NEUROLOGICAL EXAMINATION Alert oriented x 1, speech is soft, neck is supple vss right ptosis vs there is difficulty opening her eye due to dirt after clearning her right eye there is very minimal asymmetry eomi, pupils reactive no face asymmetry moving all ext ct head is unremarkable mri of brain done and it showed there is right pareital encephalomalacia eeg is pending Assessment/Plan New onset seizure, history of PD AND Dementia, Plan continue keppra 750 mg po bid seizure precautions eeg pending s/w short term rehab will continue to follow Thanking you so much Armen Lundberg MD
[2019-03-15] MEDS: KCL 10 MEQ IVPB 10 MEQ/100 ML INFUS.BAG IVPB SCH ×3 (15:36→21:10)
[2019-03-15] MEDS ORDERED: LORazepam 2 MG/ML SDV VIAL IVPUSH PRN (16:46)
--- NOTE | 2019-03-16 01:31 | PN ---
Progress Note, Physician Chief Complaint: arousable yet weak - Current Medication List Current Medications: Active Medications Ascorbic Acid (Vitamin C -) 500 mg PO DAILY [facility] Last Admin: 03/15/19 11:13 Dose: Not Given Enoxaparin Sodium (Lovenox -) 40 mg SQ DAILY [facility] Last Admin: 03/15/19 11:12 Dose: 40 mg Ferrous Sulfate (Feosol -) 325 mg PO DAILY [facility] Last Admin: 03/15/19 11:12 Dose: Not Given Levetiracetam (Keppra Injection -) 750 mg IVPB BID [facility] Last Admin: 03/15/19 21:10 Dose: 750 mg Lorazepam (Ativan Injection -) 1 mg IVPUSH DAILY PRN PRN Reason: SEIZURE ACTIVITY - Objective Vital Signs: Vital Signs Temperature 99.2 F 03/15/19 20:56 Pulse Rate 75 03/15/19 20:56 Respiratory Rate 03/15/19 21:00 Blood Pressure 150/66 03/15/19 20:56 O2 Sat by Pulse Oximetry (%) 99 03/15/19 22:00 Constitutional: Yes: Calm Eyes: Yes: EOM Intact HENT: Yes: Normocephalic Neck: Yes: Trachea Midline Cardiovascular: Yes: Regular Rate and Rhythm Respiratory: Yes: CTA Bilaterally Gastrointestinal: Yes: Normal Bowel Sounds ...Rectal Exam: Yes: Deferred Genitourinary: Yes: WNL Musculoskeletal: Yes: Muscle Weakness Extremities: Yes: Internal Rotation Edema: No Integumentary: Yes: WNL Neurological: Yes: Alert, Lethargy Labs: CBC, BMP 03/15/19 13:10 03/15/19 13:10 Problem List - Problems (1) Seizure Code(s): R56.9 - UNSPECIFIED CONVULSIONS (2) Abdominal pain Code(s): R10.9 - UNSPECIFIED ABDOMINAL PAIN (3) Nausea vomiting and diarrhea Code(s): R11.2 - NAUSEA WITH VOMITING, UNSPECIFIED; R19.7 - DIARRHEA, UNSPECIFIED (4) Ovarian mass, left Code(s): N83.8 - OTH NONINFLAMMATORY DISORD OF OVARY, FALLOP AND BROAD LIGMT Assessment/Plan Current Active Problems Abnormal Lab Results 03/15/19 03/15/19 13:10 13:10 WBC 10.8 H RBC 3.35 L Hct 31.4 L Absolute Neuts (auto) 9.1 H Neutrophils % 84.1 H Potassium 3.4 L Chloride 109 H Anion Gap 4 L Total Protein 5.6 L Albumin 3.0 L Anemia (Acute) DVT prophylaxis (Acute) Seizure (Acute) abnormal thyroid function likely euthyroid sick Laboratory Tests 03/15/19 13:10 TSH 2.66 Free T4 0.95 plan: no further thyroid intervention
[2019-03-16] MEDS ORDERED: POTASSIUM CHLORIDE ORAL LIQUID 20 MEQ/15 ML PO ONE ×3 (10:13→10:45)
[2019-03-16] MEDS: ENOXAPARIN NA (PORCINE) 40 MG/0.4 ML DISP.SYRIN SQ SCH (10:15)
[2019-03-16] MEDS: ASCORBIC ACID 500 MG TABLET (FP) PO SCH (10:15)
[2019-03-16] MEDS: FERROUS SO4 325 MG TABLET (FP) PO SCH (10:15)
[2019-03-16] MEDS: levETIRAcetam 500 MG/5 ML INJECTION VIAL IVPB SCH (10:16)
[2019-03-16 10:27] VITALS: BP 103/84; PULSE 73; TEMP 97.8
[2019-03-16] MEDS ORDERED: POTASSIUM CHLORIDE TABS 20 MEQ TABLET.ER (FP) PO ONE (10:52)
[2019-03-16] MEDS ORDERED: INSULIN SLIDING SCALE (NOVOLOG) 1 VIAL SQ SCH (11:00)
--- NOTE | 2019-03-16 12:48 | PN ---
Teaching Attending Note Name of Resident: Kellen Rivas ATTENDING PHYSICIAN STATEMENT I saw and evaluated the patient. I reviewed the resident's note and discussed the case with the resident. I agree with the resident's findings and plan as documented. SUBJECTIVE: Patient remained seizing. Baseline OBJECTIVE: Vital Signs Temperature 97.8 F 03/16/19 10:00 Pulse Rate 73 03/16/19 10:00 Respiratory Rate 19 03/16/19 10:00 Blood Pressure 103/84 03/16/19 10:00 O2 Sat by Pulse Oximetry (%) 99 03/16/19 10:00 General: Oriented to self elderly woman, comfortable, not in distress HEENT; mucous membranes moist, no anemia, no jaundice, PERRLA, no nystagmus Neck: No JVD, supple, no bruit, thyroid palpably normal, normal carotid pulsations. Chest: Nontender, clear to auscultation bilaterally/bilateral wheezing/ bilateral basal rales. CVS: S1-S2 regular/irregular no murmur/gallop/rub Abdomen: Nondistended, soft, bowel sounds present. Extremities: No edema., No cough tenderness, pulses present DIRECTOR ASSET: No interval changes oriented to self. CBC, BMP 03/15/19 13:10 03/15/19 13:10 Active Medications Ascorbic Acid (Vitamin C -) 500 mg PO DAILY [facility] Last Admin: 03/16/19 10:15 Dose: 500 mg Enoxaparin Sodium (Lovenox -) 40 mg SQ DAILY [facility] Last Admin: 03/16/19 10:15 Dose: 40 mg Ferrous Sulfate (Feosol -) 325 mg PO DAILY [facility] Last Admin: 03/16/19 10:15 Dose: 325 mg Levetiracetam (Keppra Injection -) 750 mg IVPB BID [facility] Last Admin: 03/16/19 10:16 Dose: 750 mg Lorazepam (Ativan Injection -) 1 mg IVPUSH DAILY PRN PRN Reason: SEIZURE ACTIVITY ASSESSMENT AND PLAN:73 year old female lives with her daughter , she has history of dementia and PD.She came to hospital for new onset seizure . Work- up and evaluated by the neurology consult put on Keppra and cleared to be DC home. Plan: Neurology has cleared of: No further recommendation patient can be discharged Problem List - Problems (1) Seizure Assessment/Plan: History of remote seizures present with a new onset seizure evaluated by neurology put on Keppra remained seizure-free will be DC home. Problems reviewed: Yes Code(s): R56.9 - UNSPECIFIED CONVULSIONS (2) Dementia Assessment/Plan: Chronic no activity Problems reviewed: Yes Code(s): F03.90 - UNSPECIFIED DEMENTIA WITHOUT BEHAVIORAL DISTURBANCE (3) Parkinsons disease Assessment/Plan: Follow-up neurology recommendation Problems reviewed: Yes Code(s): G20 - PARKINSON'S DISEASE (4) Hypokalemia Assessment/Plan: Repleted follow-up BMP Problems reviewed: Yes Code(s): E87.6 - HYPOKALEMIA
[2019-03-16 13:02] VITALS: BMI 13.6
--- NOTE | 2019-03-16 13:46 | DS ---
Physical Exam: SUBJECTIVE: Patient seen and examined. No events overnight. no new seizures reported. OBJECTIVE: Vital Signs Period Temp Pulse Resp BP Sys/Lyons Pulse Ox Last 24 Hr 97.7 F-99.3 F 63-86 18-20 103-150/65-84 99-99 PHYSICAL EXAM General: comfortable, not in distress HEENT; mucous membranes moist, no anemia, no jaundice, PERRLA, no nystagmus Neck: No JVD, supple, no bruit, thyroid palpably normal, normal carotid pulsations. Chest: cta b/l CVS: S1-S2 regular/irregular no murmur/gallop/rub Abdomen: Nondistended, soft, bowel sounds present. 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 LABS Laboratory Results - last 24 hr 03/15/19 03/15/19 13:10 13:10 WBC 10.8 H RBC 3.35 L Hgb 11.0 Hct 31.4 L MCV 93.8 MCH 32.8 MCHC 35.0 RDW 14.3 Plt Count 337 MPV 8.4 Absolute Neuts (auto) 9.1 H Neutrophils % 84.1 H Lymphocytes % 11.0 D Monocytes % 4.5 Eosinophils % 0.0 D Basophils % 0.4 Nucleated RBC % 0 Sodium 141 Potassium 3.4 L Chloride 109 H Carbon Dioxide 28 Anion Gap 4 L BUN 14.5 Creatinine 0.7 Est GFR (CKD-EPI)AfAm 99.62 Est GFR (CKD-EPI)NonAf 85.95 Random Glucose 95 Calcium 8.6 Phosphorus 3.7 Magnesium 2.2 Total Bilirubin 1.0 AST 17 ALT 13 Alkaline Phosphatase 65 Total Protein 5.6 L Albumin 3.0 L TSH 2.66 Free T4 0.95 HOSPITAL COURSE: Date of Admission:03/13/19 73 year old female with PMH of Parkinson's and dementia. She was brought to the ER by her family after a she suffered a seizure 30 minutes prior to presentation. #Seizure - no new reported seizures today - CT head normal - mri of brain done and it showed there is right pareital encephalomalacia -eeg done - Dr. Lundberg consulted - Keppra 750mg bid started. continue on discharge. follow up with neurology Date of Discharge: 03/16/21 Minutes to complete discharge: 35 Discharge Summary Problems reviewed: Yes Reason For Visit: SYNCOPE Current Active Problems Anemia (Acute) DVT prophylaxis (Acute) Dementia (Acute) Hypokalemia (Acute) Parkinsons disease (Acute) Seizure (Acute) Condition: Stable - Instructions Diet, Activity, Other Instructions: You were here because you had a seizure. You were started on a seizure medication by neurology. Follow up with your primary care doctor in 1 week. You can also follow up with neurology after your appointment with your primary care doctor. Referrals: Armen Lundberg MD [Staff Physician] - 1 Week Mark Anthony Lugo MD [Primary Care Provider] - 1 Week Disposition: VNS/HOME HEALTH CARE - Home Medications Comprehensive Discharge Medication List: Ambulatory Orders Ascorbic Acid [Vitamin C -] 500 mg PO DAILY tablet 03/16/19 Ferrous Sulfate [Feosol] 325 mg PO DAILY ud 03/16/19 levETIRAcetam [Keppra Oral Solution -] 750 mg PO BID #1 bottle 03/16/19 This patient is new to me today: Yes Date on this admission: 03/16/19 Emergency Visit: Yes ED Registration Date: 03/13/19 Care time: The patient presented to the Emergency Department on the above date and was hospitalized for further evaluation of their emergent condition. Critical Care patient: No - Discharge Referral Referred to [facility] No ATTENDING PHYSICIAN STATEMENT I saw and evaluated the patient. I reviewed the resident's note and discussed the case with the resident. I agree with the resident's findings and plan as documented. SUBJECTIVE: OBJECTIVE: ASSESSMENT AND PLAN:
--- NOTE | 2019-03-16 16:55 | PN ---
Progress Note (short form) - Note Progress Note: 73 year old female lives with her daughter , she has history of dementia and PD.She came to hospital for new onset seizure . Patient was loaded with keppra and ct head wa snoraml. She has baseline dementia and she can go around with help. Patiet has no fever or taruma. Patient never been on seizure medication patient remains confused NEUROLOGICAL EXAMINATION Alert oriented x 1, speech is soft, neck is supple vss right ptosis vs there is difficulty opening her eye due to dirt after clearning her right eye there is very minimal asymmetry eomi, pupils reactive no face asymmetry moving all ext ct head is unremarkable mri of brain done and it showed there is right pareital encephalomalacia Assessment/Plan New onset seizure, history of PD AND Dementia, Plan continue keppra 750 mg po bid seizure precautions can be discharged home. Thanking you so much Armen Lundberg MD
== END 2019-03-16 14:45 | disposition home health service (06) | DRG 100 ==
LOC: JER 13:03 → JERBED 18:38 → J4W 03-15 11:02
PROVIDERS: ADMIT Internal Medicine; ATTEND Internal Medicine
DX: R56.9 Unspecified convulsions (principal); E43 Unspecified severe protein-calorie malnutrition; R64 Cachexia; E46 Unspecified protein-calorie malnutrition; Z68.1 Body mass index [BMI] 19.9 or less, adult; G20 Parkinson's disease; F03.90 Unspecified dementia, unspecified severity, without behavioral disturbance, psychotic disturbance, mood disturbance, and anxiety; R73.9 Hyperglycemia, unspecified; E88.09 Other disorders of plasma-protein metabolism, not elsewhere classified; D64.9 Anemia, unspecified; E87.6 Hypokalemia
CPT/HCPCS: 36415; 70450-TC; 70553-TC; 71045-TC-FY; 80053; 80061; 81003; 82962; 83036; 83540; 83550; 83721; 83735; 84100; 84439; 84443; 84484; 85025; 87040; 87086; 93005; 93010; 93306-TC; 95816; 97161-GP; 99285-25; A9579